=== PATIENT | male | born 1945 | race Caucasian/White ===

== ENCOUNTER 2019-09-22 06:59 | Outpatient (CLI) | payer MEDICARE, SELFPAY ==
[2019-09-22 08:34] LABS: Alanine Aminotransferase 58 U/L (16-63); Albumin Level 4.1 g/dL (3.4-5.0); Alkaline Phosphatase 74 U/L (46-116); Anion Gap 13.2 mmol/L (7-16); Aspartate Amino Transferase 34 U/L (15-37); Bilirubin,Total 0.6 mg/dL (0.00-1.00); Blood Urea Nitrogen 18 mg/dL (7-18); Calcium 9.1 mg/dL (8.5-10.1); Carbon Dioxide 30 mmol/L (21-32); Chloride 103 mmol/L (98-108); Estimated Glomerular Filt Rate 57; Glucose 210 mg/dL (70-99); Osmolality Calculated 301 mOsm/kg (285-295); Potassium 4.2 mmol/L (3.5-5.1); Prostate Specific Antigen 0.5 ng/mL (< OR = 4.0); Sodium 142 mmol/L (136-145); Total Protein 7.7 g/dL (6.4-8.2)
== END 2019-09-22 07:00 | disposition home or self-care (01) ==
LOC: CHSLAB 07:02
PROVIDERS: PCP Internal Medicine; Visit Provider Urology
DX: N40.1 Benign prostatic hyperplasia with lower urinary tract symptoms (principal); N42.9 Disorder of prostate, unspecified
CPT/HCPCS: 36415; 80053; 84153

== ENCOUNTER 2019-12-08 07:11 | Outpatient (CLI) | payer MEDICARE, SELFPAY ==
[2019-12-08 07:47] LABS: Hemoglobin A1C 8.1 % (<5.7)
[2019-12-08 09:05] LABS: Alanine Aminotransferase 45 U/L (16-63); Albumin Level 3.8 g/dL (3.4-5.0); Alkaline Phosphatase 78 U/L (46-116); Anion Gap 12.3 mmol/L (7-16); Aspartate Amino Transferase 26 U/L (15-37); Bilirubin,Total 0.5 mg/dL (0.00-1.00); Blood Urea Nitrogen 20 mg/dL (7-18); Carbon Dioxide 31 mmol/L (21-32); Chloride 102 mmol/L (98-108); Cholesterol 88 mg/dL (0-200); Estimated Glomerular Filt Rate 60; Glucose 187 mg/dL (70-99); HDL Direct 28 mg/dL (40-60); LDL Cholesterol Calculated 28 mg/dL (<130); Osmolality Calculated 299 mOsm/kg (285-295); Potassium 4.3 mmol/L (3.5-5.1); Prostate Specific Antigen 0.5 ng/mL (< OR = 4.0); Sodium 141 mmol/L (136-145); Total Protein 7.2 g/dL (6.4-8.2); Triglycerides 160 mg/dL (0-150)
== END 2019-12-08 07:12 | disposition home or self-care (01) ==
LOC: CHSLAB 07:12
PROVIDERS: PCP Internal Medicine; Visit Provider Internal Medicine
DX: I25.10 Atherosclerotic heart disease of native coronary artery without angina pectoris (principal); E11.9 Type 2 diabetes mellitus without complications; E78.5 Hyperlipidemia, unspecified; Z12.5 Encounter for screening for malignant neoplasm of prostate
CPT/HCPCS: 36415; 80053; 80061; 83036; 84153; G0103

== ENCOUNTER 2020-06-02 07:02 | Outpatient (CLI) | payer MEDICARE, SELFPAY ==
[2020-06-02 07:12] LABS: Basophils Absolute Auto 0.07 K/mm3 (0.00-0.10); Basophils Percent Auto 0.7 % (0.0-1.0); Eosinophils Absolute Auto 0.29 K/mm3 (0.02-0.50); Eosinophils Percent Auto 2.8 % (1.0-6.0); Hematocrit 40.2 % (37.0-46.0); Hemoglobin 13.6 g/dL (12.4-15.3); Immature Granulocyte Absolute 0.06 K/mm3 (0.00-0.00); Immature Granulocyte Percent A 0.6 % (0.0-0.0); Lymphocytes Absolute Auto 2.28 K/mm3 (1.10-4.50); Lymphocytes Percent Auto 21.8 % (18.0-42.0); Mean Corpuscular HGB Conc 33.8 g/dL (32.0-36.0); Mean Corpuscular Hemoglobin 29.8 pg (27.0-31.0); Mean Corpuscular Volume 88.2 fL (78.0-102.0); Mean Platelet Volume 9.5 fl (8.7-11.0); Monocytes Absolute Auto 0.76 K/mm3 (0.10-0.90); Monocytes Percent Auto 7.3 % (2.0-11.0); Neutrophils Percent Auto 66.8 % (50.0-70.0); Platelet Count Result 215 K/mm3 (150-420); Red Blood Count 4.56 M/mm3 (4.70-6.10); Red Cell Distribution Width 12.5 % (11.6-14.4); White Blood Count 10.5 K/mm3 (4.8-10.8)
[2020-06-02 07:52] LABS: Hemoglobin A1C 7.1 % (<5.7)
[2020-06-02 08:06] LABS: Alanine Aminotransferase 31 U/L (16-63); Albumin Level 3.8 g/dL (3.4-5.0); Alkaline Phosphatase 76 U/L (46-116); Anion Gap 11 mmol/L (8-16); Aspartate Amino Transferase 19 U/L (15-37); Bilirubin,Total 0.5 mg/dL (0.00-1.00); Blood Urea Nitrogen 18 mg/dL (7-18); Carbon Dioxide 28 mmol/L (21-32); Chloride 103 mmol/L (98-108); Cholesterol 86 mg/dL (0-200); Estimated Glomerular Filt Rate 54; Glucose 170 mg/dL (70-99); HDL Direct 30 mg/dL (40-60); LDL Cholesterol Calculated 32 mg/dL (<130); Osmolality Calculated 299 mOsm/kg (285-295); Potassium 4.2 mmol/L (3.5-5.1); Sodium 142 mmol/L (136-145); Total Protein 7.1 g/dL (6.4-8.2); Triglycerides 120 mg/dL (0-150)
== END 2020-06-02 07:03 | disposition home or self-care (01) ==
LOC: CHSLAB 07:04
PROVIDERS: PCP Internal Medicine; Visit Provider Internal Medicine
DX: E78.5 Hyperlipidemia, unspecified (principal); I10 Essential (primary) hypertension; E11.9 Type 2 diabetes mellitus without complications
CPT/HCPCS: 36415; 80053; 80061; 83036; 85025

== ENCOUNTER 2020-06-06 14:13 | Emergency (ER) | payer MEDICARE, OTHER, SELFPAY ==
--- NOTE | ~2020-06-06 | CT_ITS ---
EXAMINATION: CT brain wo con DATE: 06/06/2020 15:09 INDICATION: Head injury. TECHNIQUE: Computed tomography (CT) of the head was performed without intravenous contrast. The mA wa s adjusted according to patient size. Iterative reconstruction technique was employed. The dose-lengt h product was 605.33 mGy-cm. COMPARISON: Head CT 09/12/2017 FINDINGS: There is no intracranial hemorrhage, acute infarction, or abnormal intracranial mass lesion . The ventricles are normal in size. The paranasal sinuses are clear. The mastoid air cells are prashant l. IMPRESSION: 1. Normal brain. Reviewed, dictated and finalized at location B. HING YOUNG IMPRESSION: 1. Normal brain.
--- NOTE | ~2020-06-06 | CT_ITS ---
EXAMINATION: CT thoracic lumbar wo con DATE: 06/06/2020 15:10 INDICATION: Back pain post fall TECHNIQUE: Computed tomography (CT) of the thoracic and lumbar spine was performed without intravenou s contrast. Automated exposure control and iterative reconstruction technique were employed. The dose -length product was 1820.89 mGy-cm. COMPARISON: None FINDINGS: Thoracic spine: Alignment is normal. There is chronic mild anterior wedging with proximal 20% anterior vertebral body height loss at T7. There are bridging osteophytes extending from T3 through T11 with nearly bridging osteophytes at T11-T12 consistent with diffuse idiopathic skeletal hyperostosis (DISH). No acute fra cture. Moderately decreased disc heights at T5-T6 through T7-T8 and mildly decreased disc height loss at T4-T5, each with small amounts of osseous bridging across portions of the disc spaces. Additional moderate disc height loss at C7-T1 and mild disc height loss at the remaining levels in the thoracic spine from T1-T2 through T10-T11. Severe bilateral facet osteoarthritis at C7-T1. Multilevel bilater al mild to moderate thoracic facet osteoarthritis. This contributes to moderate neural foraminal sten osis on the left at T1-T2 and on the right at T2-T3 and T10-T11. Mild neural foraminal stenosis at an y additional thoracic levels on both the left and right. Small right-sided posterior disc osteophyte complex resulting in mild central canal stenosis at T10-T11. Mild biapical pleural-parenchymal scarri ng. Calcified right hilar and mediastinal lymph nodes consistent with old granulomatous disease. Athe rosclerotic coronary artery calcific a cyst and coronary artery stenting. Lumbar spine: Minimal lower lumbar levocurvature centered at L4 and minimal dextrocurvature centered at L1. L5 is s acralized on both the left and right. Vertebral body heights are normal. No acute fracture. Moderate to severe right-sided predominant disc height loss at L4-L5. Likely developmentally severely narrowed L5-S1 disc space with small peripherally bridging osteophytes. Additional bridging osteophytes at th e moderately narrowed L2-L3 disc space. Mild disc height loss at L3-L4, the right side of T12-L1 and left side of L1-L2. 3.8 cm right renal cyst. Calcifications at the right renal hilum which could repr esent atherosclerotic calcific changes are nonobstructing stones. The following disc levels are speci fically discussed: T12-L1: Disc is bulging. There is severe left and moderate right facet joint osteoarthritis. There is moderate right and mild left neural foraminal stenosis. There is mild central canal stenosis. L1-L2: Disc is bulging. There is mild to moderate bilateral facet joint osteoarthritis. There is mild bilateral neural foraminal stenosis. There is mild central canal stenosis. L2-L3: Central prominent posterior osteophytes. There is severe left and mild right facet joint osteo arthritis. There is moderate bilateral neural foraminal stenosis. There is moderate central canal anabell nosis. L3-L4: Disc is bulging. There is severe bilateral facet joint osteoarthritis. There is moderate bilat eral neural foraminal stenosis. There is mild central canal stenosis. L4-L5: Disc is bulging. There is severe bilateral facet joint osteoarthritis. There is moderate right and mild to moderate left neural foraminal stenosis. There is severe central canal stenosis. L5-S1: The disc does not extend beyond the endplate margin. Facet joints are fused. There is mild rig ht and mild to moderate left neural foraminal stenosis. There is no central canal stenosis. IMPRESSION: 1. Chronic mild T7 compression fracture. No acute osseous abnormality in the thoracic or lumbar spine . 2. Moderate thoracic and moderate to severe lumbar spondylosis as well as bridging osteophytes throug hout multiple levels in the thoracic spine consistent with diffuse idiopa
[2020-06-06 14:20] VITALS: BP 130/71; PULSE 64; RESP 16; TEMP 36.9; O2SAT 97
--- NOTE | 2020-06-06 14:21 | ED.FALL ---
HPI - Fall General Chief Complaint: Back Pain/Injury Stated Complaint: fell out of back of truck flat on back Time Seen by Provider: 06/06/20 14:15 Source: patient Mode of arrival: wheelchair Limitations: no limitations History of Present Illness HPI Narrative: 74-year-old man brought to the emergency department by his after he fell off the back of his pickup truck about 3 hours ago. Patient states that he was picking up some empty oil barrels and as he was getting out of the truck he missed his footing and fell on his back and struck the back of his head. He denies loss of consciousness but it knocked his glasses and had a period he denies any numbness, tingling, nausea, vomiting, weakness, incontinence, hematuria, or bleeding. He has some right lower back pain that is worse with movement. Onset (ago): hour(s) (3) Fall from: from height (distance) (3 ft) Fall witnessed: yes, by bystander Place fall occurred: street Loss of consciousness: none Prolonged down time: no Symptoms prior to fall: none Context: tripped/slipped Location of injury: head and back Severity: moderate Quality: sharp and aching Associated symptoms (after fall): denies Related Data Home Medications Medication Instructions Recorded Confirmed amlodipine 10 mg PO DAILY 06/06/20 06/06/20 atorvastatin 40 mg PO DAILY 06/06/20 06/06/20 finasteride 5 mg PO DAILY 06/06/20 06/06/20 lisinopril-hydrochlorothiazide 1 tablet PO DAILY 06/06/20 06/06/20 metformin 500 mg PO DAILY 06/06/20 06/06/20 metoprolol succinate 100 mg PO DAILY 06/06/20 06/06/20 Allergies Allergy/AdvReac Type Severity Reaction Status Date / Time No Known Allergies Allergy Unverified 10/13/18 07:22 Review of Systems Constitutional: Constitutional: Denies chills, Denies fever(s) and Denies weakness Eyes: Eyes: Denies change in vision and Denies photophobia ENT: Denies dysphagia, Denies nasal congestion and Denies sore throat Cardiovascular: Cardiovascular: Denies chest pain and Denies radiating jaw, neck or arm pain Respiratory: Respiratory: Denies cough, Denies dyspnea and Denies wheezing Gastrointestinal: Gastrointestinal: Denies abdominal pain, Denies nausea and Denies vomiting Genitourinary: Genitourinary: Denies hematuria Musculoskeletal: Musculoskeletal: Reports back pain, Denies arthralgias and Denies joint swelling Integumentary/Breasts: Skin/Breast: Denies pruritus, Denies erythema and Denies rash Neurologic: Denies vertigo, Denies dizziness, Denies syncope, Denies headache(s), Denies focal weakness and Denies numbness Hematologic/Lymphatic: Hematologic/Lymphatic: Denies easy bleeding and Denies easy bruising Allergic/Immunologic: Allergic/Immunologic: Denies lip swelling and Denies tongue swelling PMFSH Past Medical History Medical History Dyslipidemia Hepatic steatosis Renal cyst Surgical History Surgical History H/O cystoscopy H/O prostate biopsy S/P tonsillectomy and adenoidectomy Stented coronary artery Ronny D +circumflex (2010), RCA (2018) Social History Social History Smoking status: Never smoker Substance use: never Living arrangements: with family Exam Const: General: alert Nutritional Appearance: obese ( mild) Orientation/consciousness: patient oriented x3 Other: moderate acute distress, sitting at bedside HENMT: Head: normal to inspection Ears: external ears normal, TM's normal bilaterally and EAC's normal General nose exam: Normal nares present Face and sinus: normal facial exam Mouth: Yes moist mucous membranes Throat: posterior oropharynx normal Eyes: Conjunctivae: conjunctivae normal Pupils: Equal, round and reactive pupils present EOM: EOMs intact bilaterally Resp: Effort & Inspection: normal respiratory effort and not labored Auscultation: wisam
[2020-06-06] MEDS: HYDROcodone/acetaminophen (*CRX) 5-325 MG TABLET 1 TAB PO (14:41)
[2020-06-06 15:32] LABS: Appearance Urine Clear (Clear); Bilirubin Urine 1+ (Negative); Color Urine Yellow (Yellow); Glucose Urine UA Negative (Negative); Ketones Urine Trace (Negative); Leukocyte Esterase Ur Negative (Negative); Nitrate Urine Negative (Negative); Protein Urine Negative (Negative); Specific Grav Ur 1.025 (1.010-1.020); Urobilinogen Urine 0.2 mg/dL (0.2-1.0); pH Urine 5.5 (5.0-8.0)
[2020-06-06 15:38] LABS: Add Urine Microscopic? YES; Bacteria Urine None seen /hpf; Blood Urine Trace-Intact (Negative); RBC Urine None seen /hpf (0-2); Squamous Epithelial Cell Urine Rare /hpf (Few); WBC Urine None seen /hpf (0-3)
[2020-06-06 16:28] VITALS: BP 94/52
== END 2020-06-06 16:30 | disposition home or self-care (01) ==
PROVIDERS: Emergency Provider Emergency Medicine; PCP Internal Medicine
DX: S39.92XA Unspecified injury of lower back, initial encounter (principal); S09.90XA Unspecified injury of head, initial encounter; W17.89XA Other fall from one level to another, initial encounter
CPT/HCPCS: 70450; 72128; 72131; 81001; 99283; 99284; A9270

== ENCOUNTER 2020-09-18 06:52 | Outpatient (CLI) | payer MEDICARE, OTHER, SELFPAY ==
[2020-09-18 08:02] LABS: Alanine Aminotransferase 37 U/L (16-63); Albumin Level 3.9 g/dL (3.4-5.0); Alkaline Phosphatase 78 U/L (46-116); Anion Gap 6 mmol/L (8-16); Aspartate Amino Transferase 19 U/L (15-37); Bilirubin,Total 0.4 mg/dL (0.00-1.00); Blood Urea Nitrogen 20 mg/dL (7-18); Calcium 9.4 mg/dL (8.5-10.1); Carbon Dioxide 31 mmol/L (21-32); Chloride 101 mmol/L (98-108); Estimated Glomerular Filt Rate 58; Glucose 181 mg/dL (70-99); Osmolality Calculated 293 mOsm/kg (285-295); Potassium 4.3 mmol/L (3.5-5.1); Prostate Specific Antigen 0.4 ng/mL (< OR = 4.0); Sodium 138 mmol/L (136-145); Total Protein 8.1 g/dL (6.4-8.2)
== END 2020-09-18 06:53 | disposition home or self-care (01) ==
LOC: CHSLAB 06:57
PROVIDERS: PCP Internal Medicine; Visit Provider Urology
DX: N40.1 Benign prostatic hyperplasia with lower urinary tract symptoms (principal); N42.9 Disorder of prostate, unspecified
CPT/HCPCS: 36415; 80053; 84153

== ENCOUNTER 2020-12-08 06:56 | Outpatient (CLI) | payer MEDICARE, SELFPAY ==
[2020-12-08 07:16] LABS: Hemoglobin A1C 7.4 % (<5.7)
[2020-12-08 08:33] LABS: Alanine Aminotransferase 38 U/L (16-63); Albumin Level 3.8 g/dL (3.4-5.0); Alkaline Phosphatase 79 U/L (46-116); Anion Gap 10 mmol/L (8-16); Aspartate Amino Transferase 19 U/L (15-37); Bilirubin,Total 0.5 mg/dL (0.00-1.00); Blood Urea Nitrogen 24 mg/dL (7-18); Calcium 8.9 mg/dL (8.5-10.1); Carbon Dioxide 28 mmol/L (21-32); Chloride 102 mmol/L (98-108); Cholesterol 88 mg/dL (0-200); Estimated Glomerular Filt Rate 60; Glucose 169 mg/dL (70-99); HDL Direct 29 mg/dL (40-60); LDL Cholesterol Calculated 38 mg/dL (<130); Osmolality Calculated 298 mOsm/kg (285-295); Potassium 4.1 mmol/L (3.5-5.1); Prostate Specific Antigen 0.5 ng/mL (< OR = 4.0); Sodium 140 mmol/L (136-145); Thyroid Stimulating Hormone 0.99 uIU/mL (0.36-3.74); Total Protein 7.1 g/dL (6.4-8.2); Triglycerides 105 mg/dL (0-150)
== END 2020-12-08 06:57 | disposition home or self-care (01) ==
LOC: CHSLAB 06:58
PROVIDERS: PCP Internal Medicine; Visit Provider Internal Medicine
DX: E78.5 Hyperlipidemia, unspecified (principal); I10 Essential (primary) hypertension; E11.9 Type 2 diabetes mellitus without complications; Z12.5 Encounter for screening for malignant neoplasm of prostate
CPT/HCPCS: 36415; 80053; 80061; 83036; 84153; 84443; G0103

== ENCOUNTER 2021-06-15 08:19 | Outpatient (CLI) | payer MEDICARE, SELFPAY ==
[2021-06-15 08:55] LABS: Hemoglobin A1C 6.9 % (<5.7)
[2021-06-15 09:29] LABS: Alanine Aminotransferase 37 U/L (16-63); Albumin Level 3.9 g/dL (3.4-5.0); Alkaline Phosphatase 68 U/L (46-116); Anion Gap 7 mmol/L (8-16); Aspartate Amino Transferase 18 U/L (15-37); Bilirubin,Total 0.6 mg/dL (0.00-1.00); Blood Urea Nitrogen 18 mg/dL (7-18); Calcium 8.8 mg/dL (8.5-10.1); Carbon Dioxide 30 mmol/L (21-32); Chloride 102 mmol/L (98-108); Cholesterol 91 mg/dL (0-200); Estimated Glomerular Filt Rate 59; Glucose 161 mg/dL (70-99); HDL Direct 31 mg/dL (40-60); LDL Cholesterol Calculated 32 mg/dL (<130); Osmolality Calculated 292 mOsm/kg (285-295); Potassium 4.2 mmol/L (3.5-5.1); Sodium 139 mmol/L (136-145); Thyroid Stimulating Hormone 0.82 uIU/mL (0.36-3.74); Total Protein 7.2 g/dL (6.4-8.2); Triglycerides 140 mg/dL (0-150)
== END 2021-06-15 08:20 | disposition home or self-care (01) ==
LOC: CHSLAB 08:22
PROVIDERS: PCP Internal Medicine; Visit Provider Internal Medicine
DX: E11.9 Type 2 diabetes mellitus without complications (principal); I10 Essential (primary) hypertension; E78.5 Hyperlipidemia, unspecified
CPT/HCPCS: 36415; 80053; 80061; 83036; 84443

== ENCOUNTER 2021-09-21 07:56 | Outpatient (CLI) | payer MEDICARE, SELFPAY ==
[2021-09-21 09:15] LABS: Alanine Aminotransferase 37 U/L (16-63); Alkaline Phosphatase 66 U/L (46-116); Anion Gap 8 mmol/L (8-16); Aspartate Amino Transferase 17 U/L (15-37); Bilirubin,Total 0.7 mg/dL (0.00-1.00); Blood Urea Nitrogen 16 mg/dL (7-18); Calcium 9.3 mg/dL (8.5-10.1); Carbon Dioxide 30 mmol/L (21-32); Chloride 101 mmol/L (98-108); Estimated Glomerular Filt Rate 57; Glucose 164 mg/dL (70-99); Osmolality Calculated 293 mOsm/kg (285-295); Prostate Specific Antigen 0.5 ng/mL (< OR = 4.0); Sodium 139 mmol/L (136-145); Total Protein 7.4 g/dL (6.4-8.2)
== END 2021-09-21 07:57 | disposition home or self-care (01) ==
LOC: CHSLAB 07:58
PROVIDERS: PCP Internal Medicine; Visit Provider Urology
DX: N40.1 Benign prostatic hyperplasia with lower urinary tract symptoms (principal); N42.9 Disorder of prostate, unspecified
CPT/HCPCS: 36415; 80053; 84153

== ENCOUNTER 2021-12-10 08:06 | Outpatient (CLI) | payer MEDICARE, SELFPAY ==
[2021-12-10 08:34] LABS: Hemoglobin A1C 6.8 % (<5.7)
[2021-12-10 10:36] LABS: Alanine Aminotransferase 18 U/L (16-63); Albumin Level 3.8 g/dL (3.4-5.0); Alkaline Phosphatase 69 U/L (46-116); Anion Gap 10 mmol/L (8-16); Aspartate Amino Transferase 15 U/L (15-37); Bilirubin,Total 0.6 mg/dL (0.00-1.00); Blood Urea Nitrogen 25 mg/dL (7-18); Calcium 8.8 mg/dL (8.5-10.1); Carbon Dioxide 26 mmol/L (21-32); Chloride 102 mmol/L (98-108); Cholesterol 81 mg/dL (0-200); Estimated Glomerular Filt Rate 59; Glucose 158 mg/dL (70-99); HDL Direct 32 mg/dL (40-60); LDL Cholesterol Calculated 29 mg/dL (<130); Osmolality Calculated 293 mOsm/kg (285-295); Potassium 3.9 mmol/L (3.5-5.1); Sodium 138 mmol/L (136-145); Total Protein 7.5 g/dL (6.4-8.2); Triglycerides 99 mg/dL (0-150)
== END 2021-12-10 08:07 | disposition home or self-care (01) ==
LOC: CHSLAB 08:08
PROVIDERS: PCP Internal Medicine; Visit Provider Internal Medicine
DX: E11.9 Type 2 diabetes mellitus without complications (principal); I10 Essential (primary) hypertension
CPT/HCPCS: 36415; 80053; 80061; 83036

== ENCOUNTER 2022-06-10 07:46 | Outpatient (CLI) | payer MEDICARE, SELFPAY ==
[2022-06-10 08:00] LABS: Basophils Absolute Auto 0.12 K/mm3 (0.00-0.10); Basophils Percent Auto 1.3 % (0.0-1.0); Eosinophils Absolute Auto 0.24 K/mm3 (0.02-0.50); Eosinophils Percent Auto 2.5 % (1.0-6.0); Hematocrit 41.4 % (37.0-46.0); Hemoglobin 13.8 g/dL (12.4-15.3); Immature Granulocyte Absolute 0.04 K/mm3 (0.00-0.00); Immature Granulocyte Percent A 0.4 % (0.0-0.0); Lymphocytes Percent Auto 26.5 % (18.0-42.0); Mean Corpuscular HGB Conc 33.3 g/dL (32.0-36.0); Mean Corpuscular Hemoglobin 29.6 pg (27.0-31.0); Mean Corpuscular Volume 88.8 fL (78.0-102.0); Mean Platelet Volume 9.9 fl (8.7-11.0); Monocytes Percent Auto 7.4 % (2.0-11.0); Neutrophils Absolute Auto 5.8 K/mm3 (1.7-7.2); Neutrophils Percent Auto 61.9 % (50.0-70.0); Platelet Count Result 194 K/mm3 (150-420); Red Blood Count 4.66 M/mm3 (4.70-6.10); Red Cell Distribution Width 12.5 % (11.6-14.4); White Blood Count 9.4 K/mm3 (4.8-10.8)
[2022-06-10 08:18] LABS: Hemoglobin A1C 6.5 % (<5.7)
[2022-06-10 08:35] LABS: Appearance Urine Clear (Clear); Bilirubin Urine Negative (Negative); Blood Urine 1+ (Negative); Glucose Urine UA Negative (Negative); Ketones Urine Negative (Negative); Leukocyte Esterase Ur Negative (Negative); Nitrate Urine Negative (Negative); Protein Urine Negative (Negative); Specific Grav Ur 1.025 (1.010-1.020); Urobilinogen Urine 0.2 mg/dL (0.2-1.0)
[2022-06-10 08:46] LABS: Creatinine Urine 143.91 mg/dL (40-278); Microalbumin Urine Random < 13.0 mg/L
[2022-06-10 08:59] LABS: Add Urine Microscopic? YES; Color Urine Light Yellow (Yellow); RBC Urine 0-2 /hpf (0-2)
[2022-06-10 09:00] LABS: WBC Urine None seen /hpf (0-3)
[2022-06-10 09:01] LABS: Bacteria Urine None seen /hpf
[2022-06-10 09:41] LABS: Alanine Aminotransferase 33 U/L (16-63); Albumin Level 3.9 g/dL (3.4-5.0); Alkaline Phosphatase 77 U/L (46-116); Anion Gap 10 mmol/L (8-16); Aspartate Amino Transferase 15 U/L (15-37); Bilirubin,Total 0.5 mg/dL (0.00-1.00); Blood Urea Nitrogen 15 mg/dL (7-18); Calcium 8.7 mg/dL (8.5-10.1); Carbon Dioxide 28 mmol/L (21-32); Chloride 105 mmol/L (98-108); Cholesterol 97 mg/dL (0-200); Estimated Glomerular Filt Rate 56; Glucose 169 mg/dL (70-99); HDL Direct 37 mg/dL (40-60); LDL Cholesterol Calculated 35 mg/dL (<130); Osmolality Calculated 300 mOsm/kg (285-295); Potassium 3.9 mmol/L (3.5-5.1); Sodium 143 mmol/L (136-145); Thyroid Stimulating Hormone 0.91 uIU/mL (0.36-3.74); Total Protein 7.4 g/dL (6.4-8.2); Triglycerides 125 mg/dL (0-150)
== END 2022-06-10 07:47 | disposition home or self-care (01) ==
PROVIDERS: PCP Internal Medicine; Visit Provider Internal Medicine
DX: I25.10 Atherosclerotic heart disease of native coronary artery without angina pectoris (principal); E11.9 Type 2 diabetes mellitus without complications; I10 Essential (primary) hypertension
CPT/HCPCS: 36415; 80053; 80061; 81001; 82043; 83036; 84443; 85025

== ENCOUNTER 2022-09-17 07:27 | Outpatient (CLI) | payer MEDICARE, SELFPAY ==
[2022-09-17 08:20] LABS: Alanine Aminotransferase 35 U/L (16-63); Albumin Level 3.9 g/dL (3.4-5.0); Alkaline Phosphatase 81 U/L (46-116); Anion Gap 5 mmol/L (8-16); Aspartate Amino Transferase 22 U/L (15-37); Bilirubin,Total 0.7 mg/dL (0.00-1.00); Blood Urea Nitrogen 22 mg/dL (7-18); Calcium 8.7 mg/dL (8.5-10.1); Carbon Dioxide 31 mmol/L (21-32); Chloride 104 mmol/L (98-108); Estimated Glomerular Filt Rate 57; Glucose 185 mg/dL (70-99); Osmolality Calculated 298 mOsm/kg (285-295); Potassium 4.1 mmol/L (3.5-5.1); Prostate Specific Antigen 0.5 ng/mL (< OR = 4.0); Sodium 140 mmol/L (136-145); Total Protein 7.6 g/dL (6.4-8.2)
== END 2022-09-17 07:28 | disposition home or self-care (01) ==
LOC: CHSLAB 07:29
PROVIDERS: PCP Internal Medicine; Visit Provider Urology
DX: N40.1 Benign prostatic hyperplasia with lower urinary tract symptoms (principal); N42.9 Disorder of prostate, unspecified
CPT/HCPCS: 36415; 80053; 84153

== ENCOUNTER 2022-12-11 07:50 | Outpatient (CLI) | payer MEDICARE, SELFPAY ==
[2022-12-11 08:11] LABS: Hemoglobin A1C 7.2 % (<5.7)
[2022-12-11 08:45] LABS: Alanine Aminotransferase 34 U/L (16-63); Albumin Level 3.9 g/dL (3.4-5.0); Alkaline Phosphatase 83 U/L (46-116); Anion Gap 9 mmol/L (8-16); Aspartate Amino Transferase 18 U/L (15-37); Bilirubin,Total 0.4 mg/dL (0.00-1.00); Blood Urea Nitrogen 19 mg/dL (7-18); Calcium 9.1 mg/dL (8.5-10.1); Carbon Dioxide 29 mmol/L (21-32); Chloride 103 mmol/L (98-108); Estimated Glomerular Filt Rate 59; Glucose 182 mg/dL (70-99); Osmolality Calculated 299 mOsm/kg (285-295); Potassium 4.1 mmol/L (3.5-5.1); Prostate Specific Antigen 0.5 ng/mL (< OR = 4.0); Sodium 141 mmol/L (136-145); Total Protein 7.2 g/dL (6.4-8.2)
== END 2022-12-11 07:51 | disposition home or self-care (01) ==
LOC: CHSLAB 07:51
PROVIDERS: PCP Internal Medicine; Visit Provider Internal Medicine
DX: I10 Essential (primary) hypertension (principal); E11.9 Type 2 diabetes mellitus without complications; Z12.5 Encounter for screening for malignant neoplasm of prostate
CPT/HCPCS: 36415; 80053; 83036; 84153; G0103

== ENCOUNTER 2023-06-06 06:55 | Outpatient (CLI) | payer MEDICARE, SELFPAY ==
[2023-06-06 07:14] LABS: Basophils Absolute Auto 0.08 K/mm3 (0.00-0.10); Basophils Percent Auto 0.5 % (0.0-1.0); Eosinophils Absolute Auto 0.29 K/mm3 (0.02-0.50); Eosinophils Percent Auto 1.9 % (1.0-6.0); Hematocrit 41.3 % (37.0-46.0); Hemoglobin 14.1 g/dL (12.4-15.3); Immature Granulocyte Absolute 0.08 K/mm3 (0.00-0.00); Immature Granulocyte Percent A 0.5 % (0.0-0.0); Lymphocytes Absolute Auto 1.66 K/mm3 (1.10-4.50); Lymphocytes Percent Auto 10.6 % (18.0-42.0); Mean Corpuscular HGB Conc 34.1 g/dL (32.0-36.0); Mean Corpuscular Hemoglobin 30.2 pg (27.0-31.0); Mean Corpuscular Volume 88.4 fL (78.0-102.0); Mean Platelet Volume 10.2 fl (8.7-11.0); Monocytes Absolute Auto 1.13 K/mm3 (0.10-0.90); Monocytes Percent Auto 7.2 % (2.0-11.0); Neutrophils Absolute Auto 12.4 K/mm3 (1.7-7.2); Neutrophils Percent Auto 79.3 % (50.0-70.0); Platelet Count Result 202 K/mm3 (150-420); Red Blood Count 4.67 M/mm3 (4.70-6.10); Red Cell Distribution Width 12.2 % (11.6-14.4); White Blood Count 15.7 K/mm3 (4.8-10.8)
[2023-06-06 07:44] LABS: Creatinine Urine 189.42 mg/dL (40-278); MALB Creatinine Ratio 8.2 mg/g (0-30); Microalbumin Urine Random 15.6 mg/L
[2023-06-06 07:46] LABS: Hemoglobin A1C 7.7 % (<5.7)
[2023-06-06 08:39] LABS: Alanine Aminotransferase 35 U/L (16-63); Albumin Level 3.6 g/dL (3.4-5.0); Alkaline Phosphatase 82 U/L (46-116); Anion Gap 7 mmol/L (8-16); Aspartate Amino Transferase 14 U/L (15-37); Bilirubin,Total 0.5 mg/dL (0.00-1.00); Blood Urea Nitrogen 20 mg/dL (7-18); Calcium 8.9 mg/dL (8.5-10.1); Carbon Dioxide 31 mmol/L (21-32); Chloride 102 mmol/L (98-108); Cholesterol 86 mg/dL (0-200); Estimated Glomerular Filt Rate > 60; Glucose 189 mg/dL (70-99); HDL Direct 31 mg/dL (40-60); LDL Cholesterol Calculated 33 mg/dL (<130); Osmolality Calculated 297 mOsm/kg (285-295); Potassium 4.1 mmol/L (3.5-5.1); Sodium 140 mmol/L (136-145); Thyroid Stimulating Hormone 0.61 uIU/mL (0.36-3.74); Total Protein 6.9 g/dL (6.4-8.2); Triglycerides 110 mg/dL (0-150)
== END 2023-06-06 06:56 | disposition home or self-care (01) ==
LOC: CHSLAB 06:57
PROVIDERS: PCP Internal Medicine; Visit Provider Internal Medicine
DX: I10 Essential (primary) hypertension (principal); E11.9 Type 2 diabetes mellitus without complications; I25.10 Atherosclerotic heart disease of native coronary artery without angina pectoris
CPT/HCPCS: 36415; 80053; 80061; 82043; 83036; 84443; 85025

== ENCOUNTER 2023-09-08 07:25 | Outpatient (CLI) | payer MEDICARE, SELFPAY ==
[2023-09-08 07:43] LABS: Eosinophils Absolute Auto 0.21 K/mm3 (0.02-0.50); Eosinophils Percent Auto 2.2 % (1.0-6.0); Hemoglobin 13.5 g/dL (12.4-15.3); Immature Granulocyte Absolute 0.05 K/mm3 (0.00-0.00); Immature Granulocyte Percent A 0.5 % (0.0-0.0); Lymphocytes Absolute Auto 2.09 K/mm3 (1.10-4.50); Lymphocytes Percent Auto 21.8 % (18.0-42.0); Mean Corpuscular HGB Conc 32.9 g/dL (32.0-36.0); Mean Corpuscular Hemoglobin 28.9 pg (27.0-31.0); Mean Corpuscular Volume 87.8 fL (78.0-102.0); Mean Platelet Volume 9.6 fl (8.7-11.0); Monocytes Absolute Auto 0.73 K/mm3 (0.10-0.90); Monocytes Percent Auto 7.6 % (2.0-11.0); Neutrophils Absolute Auto 6.4 K/mm3 (1.7-7.2); Neutrophils Percent Auto 66.9 % (50.0-70.0); Platelet Count Result 203 K/mm3 (150-420); Red Blood Count 4.67 M/mm3 (4.70-6.10); Red Cell Distribution Width 13.1 % (11.6-14.4); White Blood Count 9.6 K/mm3 (4.8-10.8)
[2023-09-08 09:03] LABS: Hemoglobin A1C 7.8 % (<5.7)
[2023-09-08 09:07] LABS: Alanine Aminotransferase 31 U/L (16-63); Albumin Level 3.7 g/dL (3.4-5.0); Alkaline Phosphatase 65 U/L (46-116); Anion Gap 9 mmol/L (8-16); Aspartate Amino Transferase 16 U/L (15-37); Bilirubin,Total 0.5 mg/dL (0.00-1.00); Blood Urea Nitrogen 17 mg/dL (7-18); Calcium 8.5 mg/dL (8.5-10.1); Carbon Dioxide 30 mmol/L (21-32); Chloride 102 mmol/L (98-108); Estimated Glomerular Filt Rate > 60; Glucose 190 mg/dL (70-99); Osmolality Calculated 298 mOsm/kg (285-295); Potassium 4.2 mmol/L (3.5-5.1); Sodium 141 mmol/L (136-145); Total Protein 6.9 g/dL (6.4-8.2)
== END 2023-09-08 07:26 | disposition home or self-care (01) ==
LOC: CHSLAB 07:27
PROVIDERS: PCP Internal Medicine; Visit Provider Internal Medicine
DX: I10 Essential (primary) hypertension (principal); E11.9 Type 2 diabetes mellitus without complications
CPT/HCPCS: 36415; 80053; 83036; 85025

== ENCOUNTER 2023-09-17 07:17 | Outpatient (CLI) | payer MEDICARE, SELFPAY ==
[2023-09-17 08:31] LABS: Alanine Aminotransferase 32 U/L (16-63); Albumin Level 3.7 g/dL (3.4-5.0); Alkaline Phosphatase 68 U/L (46-116); Anion Gap 7 mmol/L (8-16); Aspartate Amino Transferase 17 U/L (15-37); Bilirubin,Total 0.5 mg/dL (0.00-1.00); Blood Urea Nitrogen 17 mg/dL (7-18); Calcium 8.7 mg/dL (8.5-10.1); Carbon Dioxide 31 mmol/L (21-32); Chloride 103 mmol/L (98-108); Estimated Glomerular Filt Rate 60; Glucose 198 mg/dL (70-99); Osmolality Calculated 299 mOsm/kg (285-295); Potassium 4.2 mmol/L (3.5-5.1); Prostate Specific Antigen 0.4 ng/mL (< OR = 4.0); Sodium 141 mmol/L (136-145); Total Protein 6.9 g/dL (6.4-8.2)
== END 2023-09-17 07:18 | disposition home or self-care (01) ==
LOC: CHSLAB 07:19
PROVIDERS: PCP Internal Medicine; Visit Provider Urology
DX: N40.1 Benign prostatic hyperplasia with lower urinary tract symptoms (principal)
CPT/HCPCS: 36415; 80053; 84153

== ENCOUNTER 2023-11-17 15:44 | Outpatient (CLI) | payer MEDICARE, SELFPAY ==
[2023-11-17 16:28] LABS: Basophils Absolute Auto 0.09 K/mm3 (0.00-0.10); Basophils Percent Auto 0.9 % (0.0-1.0); Eosinophils Absolute Auto 0.22 K/mm3 (0.02-0.50); Eosinophils Percent Auto 2.2 % (1.0-6.0); Hematocrit 39.4 % (37.0-46.0); Hemoglobin 13.2 g/dL (12.4-15.3); Immature Granulocyte Absolute 0.06 K/mm3 (0.00-0.00); Immature Granulocyte Percent A 0.6 % (0.0-0.0); Lymphocytes Absolute Auto 2.48 K/mm3 (1.10-4.50); Lymphocytes Percent Auto 25.2 % (18.0-42.0); Mean Corpuscular HGB Conc 33.5 g/dL (32-36); Mean Corpuscular Hemoglobin 29.9 pg (27.0-31.0); Mean Corpuscular Volume 89.1 fL (78.0-102.0); Mean Platelet Volume 9.9 fl (8.7-11.0); Monocytes Absolute Auto 0.87 K/mm3 (0.10-0.90); Monocytes Percent Auto 8.9 % (2.0-11.0); Neutrophils Absolute Auto 6.11 K/mm3 (1.70-7.20); Neutrophils Percent Auto 62.2 % (50.0-70.0); Platelet Count Result 201 K/mm3 (150-420); Red Blood Count 4.42 M/mm3 (4.70-6.10); Red Cell Distribution Width 13.2 % (11.6-14.4); White Blood Count 9.8 K/mm3 (4.8-10.8)
[2023-11-17 16:46] LABS: Alanine Aminotransferase 27 U/L (16-63); Albumin Level 3.8 g/dL (3.4-5.0); Alkaline Phosphatase 71 U/L (46-116); Anion Gap 7 mmol/L (4-12); Aspartate Amino Transferase 17 U/L (15-37); Bilirubin,Total 0.3 mg/dL (0.00-1.00); Blood Urea Nitrogen 20 mg/dL (7-18); Calcium 8.9 mg/dL (8.5-10.1); Carbon Dioxide 33 mmol/L (21-32); Chloride 102 mmol/L (98-108); Estimated Glomerular Filt Rate > 60; Glucose 109 mg/dL (70-99); Osmolality Calculated 297 mOsm/kg (285-295); Sodium 142 mmol/L (136-145); Total Protein 7.1 g/dL (6.4-8.2)
== END 2023-11-17 15:45 | disposition home or self-care (01) ==
PROVIDERS: PCP Internal Medicine; Visit Provider Internal Medicine
DX: R31.9 Hematuria, unspecified (principal); N40.0 Benign prostatic hyperplasia without lower urinary tract symptoms
CPT/HCPCS: 36415; 80053; 85025

== ENCOUNTER 2023-11-19 08:01 | Outpatient (CLI) | payer MEDICARE, OTHER, SELFPAY ==
--- NOTE | ~2023-11-19 | CT_ITS ---
EXAMINATION: CT abdomen pelvis wo/w con DATE: 11/19/2023 09:03 INDICATION: Gross hematuria. TECHNIQUE: Computed tomography (CT) of the abdomen and pelvis was performed without and with intraven ous contrast using a total of 130 mL Omnipaque-350 intravenous contrast with a double-bolus technique for simultaneous opacification of the renal parenchyma and renal collecting system. Automated exposu re control and iterative reconstruction technique were employed. The dose-length product was 1808.58 mGy-cm. COMPARISON: CT abdomen and pelvis 03/30/2016 FINDINGS: The visualized portions of the lung bases demonstrate mild chronic interstitial lung disease. No pleu ral effusion. The heart size is normal. There are coronary artery calcifications. There are calcifica tions aortic valve. There is a trace pericardial effusion. Calcifications in the liver and spleen are consistent with old granulomatous disease. The gallbladder is normal in size. The pancreas and adren al glands are normal. There are cysts in the kidneys measuring up to 4.6 cm on the right. There are 3 stones in right kidney measuring up to 6 mm. The ureters are well opacified and are normal. The blad evie is not well distended. There is prominent fat in the inguinal canals that may be hernias. There a re no dilated loops of bowel. The appendix is normal. There is calcified atherosclerosis of the aorta and many of the other arteries. There is severe lumbar spondylosis. There are bridging endplate oste ophytes at multiple levels in the spine, consistent with diffuse idiopathic skeletal hyperostosis (DI SH). IMPRESSION: 1. Nonobstructing right kidney stones. Reviewed, dictated and finalized at location E.
[2023-11-19 08:20] LABS: Estimated Glomerular Filt Rate 56
== END 2023-11-19 08:02 | disposition home or self-care (01) ==
LOC: CHSIMG 08:02
PROVIDERS: PCP Internal Medicine; Visit Provider Internal Medicine
DX: R31.9 Hematuria, unspecified (principal); N40.0 Benign prostatic hyperplasia without lower urinary tract symptoms; N20.0 Calculus of kidney
CPT/HCPCS: 74178; Q9967

== ENCOUNTER 2023-12-29 07:07 | Outpatient (CLI) | payer MEDICARE, SELFPAY ==
[2023-12-29 07:30] LABS: Hemoglobin A1C 6.8 % (<5.7)
[2023-12-29 08:03] LABS: Alanine Aminotransferase 26 U/L (16-63); Albumin Level 3.7 g/dL (3.4-5.0); Alkaline Phosphatase 65 U/L (46-116); Anion Gap 8 mmol/L (4-12); Aspartate Amino Transferase 18 U/L (15-37); Bilirubin,Total 0.4 mg/dL (0.00-1.00); Blood Urea Nitrogen 26 mg/dL (7-18); Calcium 8.7 mg/dL (8.5-10.1); Carbon Dioxide 29 mmol/L (21-32); Chloride 104 mmol/L (98-108); Cholesterol 84 mg/dL (0-200); Estimated Glomerular Filt Rate 53; Glucose 152 mg/dL (70-99); HDL Direct 34 mg/dL (40-60); LDL Cholesterol Calculated 30 mg/dL (<130); Osmolality Calculated 299 mOsm/kg (285-295); Potassium 4.3 mmol/L (3.5-5.1); Sodium 141 mmol/L (136-145); Triglycerides 99 mg/dL (0-150)
== END 2023-12-29 07:08 | disposition home or self-care (01) ==
LOC: CHSLAB 07:09
PROVIDERS: PCP Internal Medicine; Visit Provider Internal Medicine
DX: E11.9 Type 2 diabetes mellitus without complications (principal); E78.5 Hyperlipidemia, unspecified
CPT/HCPCS: 36415; 80053; 80061; 83036

== ENCOUNTER 2024-04-12 07:14 | Outpatient (CLI) | payer MEDICARE, SELFPAY ==
[2024-04-12 07:36] LABS: Hematocrit 39.8 % (37.0-46.0); Hemoglobin 13.4 g/dL (12.4-15.3); Mean Corpuscular HGB Conc 33.7 g/dL (32-36); Mean Corpuscular Hemoglobin 29.8 pg (27.0-31.0); Mean Corpuscular Volume 88.4 fL (78.0-102.0); Mean Platelet Volume 9.9 fl (8.7-11.0); Platelet Count Result 170 K/mm3 (150-420); Red Cell Distribution Width 12.4 % (11.6-14.4); White Blood Count 9.3 K/mm3 (4.8-10.8)
[2024-04-12 07:49] LABS: Hemoglobin A1C 6.7 % (<5.7)
[2024-04-12 08:03] LABS: Alanine Aminotransferase 30 U/L (16-63); Alkaline Phosphatase 72 U/L (46-116); Anion Gap 9 mmol/L (4-12); Aspartate Amino Transferase 18 U/L (15-37); Bilirubin,Total 0.5 mg/dL (0.00-1.00); Blood Urea Nitrogen 18 mg/dL (7-18); Calcium 8.9 mg/dL (8.5-10.1); Carbon Dioxide 29 mmol/L (21-32); Chloride 103 mmol/L (98-108); Glucose 165 mg/dL (70-99); Osmolality Calculated 297 mOsm/kg (285-295); Potassium 4.2 mmol/L (3.5-5.1); Sodium 141 mmol/L (136-145); Total Protein 6.9 g/dL (6.4-8.2)
[2024-04-12 08:14] LABS: Albumin Level 3.6 g/dL (3.4-5.0); Estimated Glomerular Filt Rate 58
== END 2024-04-12 07:15 | disposition home or self-care (01) ==
LOC: CHSLAB 07:16
PROVIDERS: PCP Internal Medicine; Visit Provider Internal Medicine
DX: E11.9 Type 2 diabetes mellitus without complications (principal); I10 Essential (primary) hypertension
CPT/HCPCS: 36415; 80053; 83036; 85027

== ENCOUNTER 2024-09-23 10:05 | Outpatient (CLI) | payer MEDICARE, OTHER, SELFPAY ==
[2024-09-23 11:07] LABS: Alanine Aminotransferase 28 U/L (16-63); Albumin Level 3.8 g/dL (3.4-5.0); Alkaline Phosphatase 92 U/L (46-116); Anion Gap 9 mmol/L (4-12); Aspartate Amino Transferase 23 U/L (15-37); Bilirubin,Total 0.5 mg/dL (0.00-1.00); Blood Urea Nitrogen 20 mg/dL (7-18); Calcium 9.2 mg/dL (8.5-10.1); Carbon Dioxide 30 mmol/L (21-32); Chloride 102 mmol/L (98-108); Estimated Glomerular Filt Rate 53; Glucose 161 mg/dL (70-99); Osmolality Calculated 297 mOsm/kg (285-295); Potassium 4.6 mmol/L (3.5-5.1); Prostate Specific Antigen 0.4 ng/mL (< OR = 4.0); Sodium 141 mmol/L (136-145); Total Protein 7.3 g/dL (6.4-8.2)
== END 2024-09-23 10:06 | disposition home or self-care (01) ==
LOC: CHSLAB 10:08
PROVIDERS: PCP Internal Medicine; Visit Provider Urology
DX: N40.1 Benign prostatic hyperplasia with lower urinary tract symptoms (principal); N42.9 Disorder of prostate, unspecified; N20.0 Calculus of kidney; Z12.5 Encounter for screening for malignant neoplasm of prostate
CPT/HCPCS: 36415; 74018; 80053; 84153; G0103

== ENCOUNTER 2024-10-11 07:45 | Outpatient (CLI) | payer MEDICARE, SELFPAY ==
--- OUTSIDE RECORDS SUMMARY | 2024-10-11 07:50 | XMS_ITS | Referral Summary ---
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 Name Role Phone Wilfredo Jones MD Primary Care Provider [phone] Allergies Active Allergy Reactions Criticality Noted Date Comments Pravastatin Muscle pain Medium 09/08/2019 Medications glucosamine sulfate 1,000 mg capsule take daily 0 0 02/01/20 14 Active B-complex with vitamin C (SUPER B/C) capsule take daily 0 0 02/01/20 14 Active aspirin 81 mg tablet take 1 tablet by oral route every day 0 0 02/01/20 14 Active finasteride (PROSCAR) 5 mg tablet take 1 tablet by oral route every day 0 0 02/07/20 15 Active multivitamin tabletIndications: Vitamin Deficiency Prevention Take 1 tablet by mouth daily. Active MAGNESIUM ORAL Take 500 mg by mouth daily. Active lisinopril-hydroCH LOROthiazide (PRINZIDE,ZESTORET IC) 20-25 mg per tabletIndications: hypertension Take 1 tablet by mouth daily Active atorvastatin (LIPITOR) 40 mg tabletIndications: Coronary artery disease of [place] artery of [place] heart with stable angina pectoris,Mixed hyperlipidemia Take 1 tablet by mouth once daily 90 tablet 2 11/21/19 21 Active metoprolol XL (TOPROL-XL) 100 mg 24 hr tabletIndications: Essential hypertension TAKE 1 & 1/2 (ONE & ONE-HALF) TABLETS BY MOUTH ONCE DAILY 135 tablet 2 01/19/20 21 Active amLODIPine (NORVASC) 10 mg tablet Take 1 tablet by mouth once daily 90 tablet 1 03/08/20 21 Active FISH OIL-DHA-EPA ORAL Take by mouth Active metFORMIN (GLUCOPHAGE) 500 mg tablet Take 2 tablets (1,000 mg total) by mouth 2 (two) times a day with meals 10/02/19 22 Active Additional Information Patient taking differently:1,000 mg oral 2 times daily with meals (bkfst, dinner),4 tablets bid, Reported on 12/08/2023 latanoprost (XALATAN) 0.005 % ophthalmic solution 1 drop nightly 10/30/19 24 Active tamsulosin (FLOMAX) 0.4 mg extended release capsule Take 1 capsule (0.4 mg total) by mouth daily 11/17/19 24 Active terbinafine (LamiSIL) 250 mg tablet Take 1 tablet (250 mg total) by mouth daily Active ascorbic acid (vitamin C) 1,000 mg tablet Take 1 tablet (1,000 mg total) by mouth daily Active Active Problems Problem Noted Date Diagnosed Date Hyperlipidemia associated with type 2 diabetes m ellitus 10/01/2021 Nonrheumatic aortic valve stenosis 09/20/2020 Coronary artery disease of n ative artery of [place] heart with stable angina pectoris 09/03/2017 Statin intolerance 02/06/2015 Overview (10/31/2016): Statin intolerance Presence of stent in coronary artery 01/31/2014 Overview (10/31/2016): H/O right coronary artery stent placement Obesity due to excess calori es, unspecified obesity severity 01/31/2014 Overview (10/31/2016): Obesity Essential hypertension 01/31/2014 Overview (10/31/2016): HTN (hypertension) Old myocardial infarction 01/31/2014 Overview (10/31/2016): Old LA (myocardial infarction) 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 Overview (10/31/2016): Multifocal motor neuropathy Mixed hyperlipidemia 01/31/2014 Overview (10/31/2016): Hypercholesterolemia Resolved Problems Problem Noted Date Diagnosed Date Resolved Date Murmur, heart 09/08/2019 09/20/2020 Social History Tobacco Use Types Packs/Day Years Used Date Smoking Tobacco: Former Smokeless Tobacco: Never Tobacco Cessation:Counseling Given: Not Answered Alcohol Use Standard Drinks/Week Comments Yes 0 (1 standard drink = 0.6 oz pur e alcohol) Personal Safety Answer Date Recorded Getting School Help Needed Not on file 09/16 Sex and Gender Information Value Date Recorded Sex Assigned at Not on file 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 Gender Identity Not on file Sexual Orientation Not on file Last Filed Vital Signs Vital Sign Reading Time Taken Comments Blood Pressure 112/58 12/08/2023 11:08 AM CDT Pulse 55 12/08/2023 11:08 AM CDT Temperature - - Respiratory Rate - - Oxygen Saturation 96% 12/08/2023 11:08 AM CDT Inhaled Oxygen Concentration - - Weight 95.5 kg (210 lb 8 oz) 12/08/2023 11:08 AM CDT Height 172.7 cm (5' 8 ) 12/08/2023 11:08 AM CDT Body Mass Index 32.01 12/08/2023 11:08 AM CDT Plan of Treatment Not on file Procedures Procedure Name Priority Date/Time Associated Diagnosis Comments POCT LIPID PANEL Routine 10/14/2022 10:2 0 AM CDT Lipid screening from Last 3 Months or Most Recently Relevant to Health Maintenance Results * POCT lipid panel (10/14/2022 10:20 AM CDT) Cholesterol, POC 99 mg/dL HDL, POC 19 mg/dL Triglycerides, POC 139 mg/dL LDL Cholesterol POC 58 mg/dL Chol/HDL Ratio, POC - Non-HDL Cholesterol, POC - mg/dL Cholesterol Total, POC 99 mg/dL Capillary blood 10/14/2022 1 0:20 AM CDT Elisha Kaufamn MD POINT OF CARE TEST ORDERABL ES Final Result from Last 3 Months or Most Recently Relevant to Health Maintenance Insurance [employer] Care Teams Oil Burner Servicer And Installer Relationship Specialty Start Date End Date Wilfredo Jones MD PCP - General 02/06/15
--- OUTSIDE RECORDS SUMMARY | 2024-10-11 07:50 | XMS_ITS | Clinical Summary ---
Author Organization [facility] [place] [address] Address [address] [place] [address] Care Team Providers Care Auto Mechanic Name Role Phone Wilfredo Jones MD Primary Care Provider [phone] Allergies Active Allergy Reactions Criticality Noted Date [...] 40 mg tabletIndications: Coronary artery disease of [place] artery of [place] heart with stable angina pectoris,Mixed hyperlipidemia Take [...] artery disease of n ative artery of [place] heart with stable angina pectoris 09/03/2017 Statin intolerance 02/06/2015 Overview (10/31/2016): Statin intolerance Presence of stent in coronary artery 01/31/2014 Overview (10/31/2016): H/O right coronary artery stent placement Obesity due to excess calori es, unspecified obesity severity 01/31/2014 Overview (10/31/2016): Obesity Essential hypertension 01/31/2014 Overview (10/31/2016): HTN (hypertension) Old myocardial infarction 01/31/2014 Overview (10/31/2016): Old [place] (myocardial infarction) 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 Overview (10/31/2016): Multifocal motor neuropathy Mixed hyperlipidemia 01/31/2014 Overview (10/31/2016): Hypercholesterolemia Resolved Problems Problem Noted Date Diagnosed Date Resolved Date Murmur, heart 09/08/2019 09/20/2020 Medical History Medical History Date Comments Hx Other Medical Multifocal mylene r neuropathy causing RUE weakness; Comments: SLAVAU 02/06/2014 - Social History Tobacco Use Types Packs/Day Years [...] on file 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 Gender Identity Not on file Sexual Orientation Not on file Obstetrics History Last Filed Vital Signs Vital Sign Reading [...] 12/08/2023 11:08 AM CDT Plan of Treatment Health Maintenance Due Date Last Done Comments Albumin Creatinine Ratio, Urine 1947 Depression Screening 1947 Fall Risk Assessment 1945 Hemoglobin A1C 1947 Hepatitis C Screening 1945 eGFR 1945 Dilated Eye Exam 1945 Foot Exam 1945 DTaP/Tdap/Td Vaccine (1 - Tdap) 12/09/1958 Hepatitis B Screening 12/09/1965 Zoster Vaccine (1 of 2) 12/09/1997 Abdominal Aortic Aneurysm (A AA) Screen 12/09/2012 Well Visit 65+ 12/09/2012 Pneumococcal vaccine 65+ (3 of 3 - PCV20 or PCV21) 02/19/2021 02/20/2016, 08/07/2012 Lipid Panel 10/15/2023 10/14/2022, 03/0 01/2022, 09/20/2020, Additional history exists Influenza Vaccine (#1) 2024 9, 04/27/2018, 05/27/2017, Additional history exists Procedures Procedure Name Priority Date/Time Associated Diagnosis [...] blood 10/14/2022 1 0:20 AM CDT Elisha Kaufman MD POINT OF CARE TEST ORDERABL ES Final Result from Last 3 Months or Most Recently Relevant to Health Maintenance Insurance [facility] [place] MEDICARE MEDICARE [employer] [place] [employer] Care Teams Auto Mechanic Relationship Specialty Start Date End Date Wilfredo Jones MD PCP - General 02/06/15
--- OUTSIDE RECORDS SUMMARY | 2024-10-11 07:50 | XMS_ITS | Clinical Summary ---
Author Organization [facility] Address [address] [place] [address] Care Team Providers Care Custom Harvester Name Role Phone Unavailable Primary Care Provider Unavailabl e Social History Tobacco Use Types Packs/Day Years Used Date Smoking Tobacco: Former Sex and Gender Information Value Date Recorded Sex Assigned at Not on file Legal Sex Male 9:50 PM CDT Gender Identity Not on file Sexual Orientation Not on file Last Filed Vital Signs Vital Sign Reading Time Taken Comments Blood Pressure 164/80 10/29/2010 10:48 AM CDT Pulse 64 10/29/2010 10:47 AM CDT Temperature - - Respiratory Rate 16 10/29/2010 10:47 AM CDT Oxygen Saturation - - Inhaled Oxygen Concentration - - Weight 100.7 kg (222 lb) 10/29/2010 10:47 AM CDT Height 170.2 cm (5' 7 ) 10/29/2010 10:47 AM CDT Body Mass Index 34.77 10/29/2010 10:47 AM CDT Plan of Treatment Health Maintenance Due Date Last Done Comments Hepatitis C 12/09/1965 DTaP, Tdap and Td Vaccines ( 1 - Tdap) 12/09/1966 Zoster Vaccines (1 of 2) 12/09/1997 Pneumococcal Vaccine: 65+ Ye ars (1 of 1 - PCV) 12/09/2012 RSV Immunization or 60+ Years (1 - 1-dose 75+ series) 12/09/2022 COVID-19 Vaccine ( - 2023-2 5 season) 2024 Influenza Adult (#1) 2024 Meningococcal B Vaccine Aged Out No l onger eligible based on patient's age to complete this topic Meningococcal Vaccine Aged Out No mervat mary eligible based on patient's age to complete this topic RSV Immunizations Under 20 Months Aged Out No longer eligible based on patient's age to complete this topic
[2024-10-11 08:16] LABS: Basophils Absolute Auto 0.11 K/mm3 (0.00-0.10); Eosinophils Absolute Auto 0.85 K/mm3 (0.02-0.50); Eosinophils Percent Auto 7.6 % (1.0-6.0); Hematocrit 40.5 % (37.0-46.0); Hemoglobin 13.6 g/dL (12.4-15.3); Immature Granulocyte Absolute 0.06 K/mm3 (0.00-0.00); Immature Granulocyte Percent A 0.5 % (0.0-0.0); Lymphocytes Absolute Auto 1.92 K/mm3 (1.10-4.50); Lymphocytes Percent Auto 17.2 % (18.0-42.0); Mean Corpuscular HGB Conc 33.6 g/dL (32-36); Mean Corpuscular Hemoglobin 29.6 pg (27.0-31.0); Mean Platelet Volume 9.8 fl (8.7-11.0); Monocytes Absolute Auto 0.79 K/mm3 (0.10-0.90); Monocytes Percent Auto 7.1 % (2.0-11.0); Neutrophils Absolute Auto 7.41 K/mm3 (1.70-7.20); Neutrophils Percent Auto 66.6 % (50.0-70.0); Platelet Count Result 203 K/mm3 (150-420); Red Cell Distribution Width 12.5 % (11.6-14.4); White Blood Count 11.1 K/mm3 (4.8-10.8)
[2024-10-11 08:42] LABS: Hemoglobin A1C 7.3 % (<5.7)
[2024-10-11 09:07] LABS: Alanine Aminotransferase 31 U/L (16-63); Albumin Level 3.8 g/dL (3.4-5.0); Alkaline Phosphatase 88 U/L (46-116); Anion Gap 7 mmol/L (4-12); Aspartate Amino Transferase 16 U/L (15-37); Bilirubin,Total 0.3 mg/dL (0.00-1.00); Blood Urea Nitrogen 19 mg/dL (7-18); Calcium 9.1 mg/dL (8.5-10.1); Carbon Dioxide 29 mmol/L (21-32); Chloride 105 mmol/L (98-108); Cholesterol 91 mg/dL (0-200); Estimated Glomerular Filt Rate 59; Glucose 191 mg/dL (70-99); HDL Direct 37 mg/dL (40-60); LDL Cholesterol Calculated 31 mg/dL (<130); Osmolality Calculated 299 mOsm/kg (285-295); Potassium 4.2 mmol/L (3.5-5.1); Sodium 141 mmol/L (136-145); Total Protein 7.3 g/dL (6.4-8.2); Triglycerides 113 mg/dL (0-150)
== END 2024-10-11 07:46 | disposition home or self-care (01) ==
LOC: CHSLAB 07:47
PROVIDERS: PCP Internal Medicine; Visit Provider Internal Medicine
DX: I10 Essential (primary) hypertension (principal); E11.9 Type 2 diabetes mellitus without complications; E78.5 Hyperlipidemia, unspecified
CPT/HCPCS: 36415; 80053; 80061; 83036; 85025

== ENCOUNTER 2025-04-12 07:04 | Outpatient (CLI) | payer MEDICARE, BC, SELFPAY ==
[2025-04-12 07:19] LABS: Hematocrit 42.3 % (37.0-46.0); Hemoglobin 14.2 g/dL (12.4-15.3); Mean Corpuscular HGB Conc 33.6 g/dL (32-36); Mean Corpuscular Hemoglobin 29.7 pg (27.0-31.0); Mean Corpuscular Volume 88.5 fL (78.0-102.0); Platelet Count Result 207 K/mm3 (150-420); Red Blood Count 4.78 M/mm3 (4.70-6.10); White Blood Count 10.6 K/mm3 (4.8-10.8)
[2025-04-12 08:05] LABS: Alanine Aminotransferase 36 U/L (6-50); Albumin Level 4.4 g/dL (3.5-5.1); Alkaline Phosphatase 74 U/L (38-126); Anion Gap 11 mmol/L (4-12); Aspartate Amino Transferase 32 U/L (17-59); Bilirubin,Total 0.6 mg/dL (0.2-1.3); Blood Urea Nitrogen 18 mg/dL (9-20); Calcium 9.6 mg/dL (8.4-10.2); Carbon Dioxide 29 mmol/L (22-30); Chloride 101 mmol/L (98-107); Cholesterol 95 mg/dL (0-200); Estimated Glomerular Filt Rate 60; Glucose 232 mg/dL (65-110); HDL Direct 28 mg/dL; Osmolality Calculated 300 mOsm/kg (285-295); Potassium 4.7 mmol/L (3.4-5.0); Sodium 141 mmol/L (137-145); Total Protein 7.8 g/dL (6.3-8.2); Triglycerides 199 mg/dL (<150)
[2025-04-12 08:37] LABS: Thyroid Stimulating Hormone 1.340 uIU/mL (0.465-4.680)
[2025-04-18 11:26] LABS: Hemoglobin A1C 8.4 % (<5.7)
== END 2025-04-12 07:05 | disposition home or self-care (01) ==
LOC: CHSLAB 07:10
PROVIDERS: PCP Internal Medicine; Visit Provider Internal Medicine
DX: I10 Essential (primary) hypertension (principal); E78.5 Hyperlipidemia, unspecified; E11.9 Type 2 diabetes mellitus without complications
CPT/HCPCS: 36415; 80053; 80061; 83036; 84443; 85027